=== PATIENT | female | born 1980 | race Caucasian/White ===

== ENCOUNTER → 2021-07-28 | Outpatient (CLI) | payer BC ==
--- NOTE | 2021-07-28 09:12 | KCIC ---
EXAM: Lumbar spine MRI without contrast. HISTORY: Lumbar radiculopathy. TECHNIQUE: Multiplanar, multisequence magnetic resonance imaging of the lumbar spine was performed wi thout contrast. COMPARISON: None. FINDINGS: There is no listhesis. The vertebral bodies are normal in height. There is endplate remodel ing and disc desiccation at L2-L3, L3-L4, L4-L5 and L5-S1. There are few endplate Schmorl's nodes. Th ere is no suspicious osseous lesion. There is no acute or subacute fracture. The conus terminates at L1-L2. There is prominent dorsal epidural fat at the lumbar levels. At L1-L2, there is no stenosis. At L2-L3, there is a disc bulge with posterior annular tear. There is minimal central canal stenosis. At L3-L4, there is a broad-based posterior central to right paracentral disc protrusion and annular t ear superimposed on a disc bulge. There is mild right facet arthropathy. There is minimal central can al stenosis. At L4-L5, there is a broad-based posterior central disc protrusion. There is a right foraminal disc p rotrusion with slight superior extrusion. There is a left foraminal to extra foraminal disc protrusio n and osteophyte complex. These findings are superimposed on a disc bulge. There is mild right greate r than left foraminal stenosis with abutment of the exiting L4 nerve roots. There is mild central can al stenosis. There is narrowing of the left lateral recess and mild central canal stenosis. At L5-S1, there is a soft tissue lesion within and superior to the left lateral recess measuring appr oximately 1.1 cm superior to the disc space. There is effaces the exiting left L5 nerve root. There i s a broad-based left lateral recess disc protrusion superimposed on a disc bulge and endplate remodel ing. There is mild left foraminal stenosis. There is narrowing of the left lateral recess and abutmen t the traversing left S1 nerve root. IMPRESSION: 1. L5-S1: Soft tissue lesion within and superior to left lateral recess, measuring approximately 1.1 cm superior to the disc space. Given the presence of a shallow left lateral recess disc protrusion at this level, this is likely due to superior extruded disc material. This effaces the exiting left L5 nerve root and abuts the traversing left S1 nerve roots. Postcontrast imaging can be performed to exc lude an alternative etiology such as a nerve sheath tumor. 2. Degenerative change at the remainder of the lumbar levels, described in detail above. This results in stenosis at the aforementioned levels. Electronically signed by: Azra Darby MD (07/28/2021 9:09 AM) [facility]
== END ==
LOC: KCIC MRI 07:50
PROVIDERS: ATTEND Physician Assistant Medical
DX: M47.26 Other spondylosis with radiculopathy, lumbar region (principal); M48.07 Spinal stenosis, lumbosacral region; M48.8X7 Other specified spondylopathies, lumbosacral region; M51.27 Other intervertebral disc displacement, lumbosacral region; M51.46 Schmorl's nodes, lumbar region; M48.8X6 Other specified spondylopathies, lumbar region
CPT/HCPCS: 72148